=== PATIENT | male | born 1995 | race Two or more races ===

== ENCOUNTER 2021-05-24 12:56 | Emergency (ER) | payer MEDICAID, OTHER ==
[~2021-05-24] VITALS: Ht 175.3 cm; Wt 79.4 kg
[2021-05-24 12:59] VITALS: BP 118/68
== END 2021-05-24 14:09 | disposition home or self-care (01) ==
LOC: ER 12:56
DX: S61.210A Laceration without foreign body of right index finger without damage to nail, initial encounter (principal); F17.210 Nicotine dependence, cigarettes, uncomplicated; W25.XXXA Contact with sharp glass, initial encounter; Y93.89 Activity, other specified; Y92.89 Other specified places as the place of occurrence of the external cause; Y99.8 Other external cause status
CPT/HCPCS: 12002

== ENCOUNTER 2021-06-06 16:01 | Emergency (ER) | payer MEDICAID ==
[~2021-06-06] VITALS: Ht 175.3 cm; Wt 79.4 kg
[2021-06-06 16:34] VITALS: BP 121/79
== END 2021-06-06 17:08 | disposition home or self-care (01) ==
LOC: ER 16:07
DX: S61.210D Laceration without foreign body of right index finger without damage to nail, subsequent encounter (principal); F17.210 Nicotine dependence, cigarettes, uncomplicated; W25.XXXD Contact with sharp glass, subsequent encounter